=== PATIENT | male | born 1985 | race Caucasian/White ===

== ENCOUNTER 2023-03-05 17:55 | Emergency (ER) | payer OTHER ==
[2023-03-05] MEDS ORDERED: Lidocaine 2% 20 ML MDV INFILT ONE (17:56)
[2023-03-05] MEDS ORDERED: Cephalexin 500 MG Cap PO ONE (18:44)
[2023-03-05 19:06] VITALS: BP 133/81; PULSE 87
== END 2023-03-05 18:58 | disposition home or self-care (01) ==
LOC: FB.ED 17:55
DX: S61.412A Laceration without foreign body of left hand, initial encounter (principal); W23.0XXA Caught, crushed, jammed, or pinched between moving objects, initial encounter; Y92.89 Other specified places as the place of occurrence of the external cause; Y99.0 Civilian activity done for income or pay
CPT/HCPCS: 12002; 99000; 99282; A9270